=== PATIENT | female | born 1950 | race Caucasian/White ===

== ENCOUNTER 2019-01-09 10:30 | Emergency (ER) | payer MEDICARE ==
[~2019-01-09] VITALS: Ht 165.1 cm; Wt 77.3 kg
[2019-01-09 10:40] VITALS: BP 171/69; PULSE 59; RESP 20; Ht 165.1 cm; Wt 77.3 kg
[2019-01-09] MEDS ORDERED: KETOROLAC 15 MG INJ IV STA (10:45)
[2019-01-09] MEDS ORDERED: LACTATED RINGER'S 1,000 ML IV STA (10:45)
[2019-01-09] MEDS ORDERED: METO-319 ORAL (11:22)
[2019-01-09] MEDS ORDERED: LEVO100T8 ORAL (11:22)
[2019-01-09] MEDS ORDERED: OXYC-279 PO (11:36)
[2019-01-09] MEDS ORDERED: IBUP-1542 PO (11:36)
--- NOTE | 2019-01-09 11:52 | ERD ---
ER Documentation Chief Complaint Chief Complaint RIGHT SHOULDER PAIN & SWELLING S/P FALL ARM HIT PRINTER, GOOD PULSE HPI 68-year-old woman brought in by EMS for pain swelling deformity to the right upper arm after she bumped into a copier machine and then fell onto the arm. She denies wrist or elbow pain, no chest pain or shortness of breath. She denies head injury and denies headache or neck pain, no paresis or paresthesias, no abdominal pain or back pain. Patient was transported here by EMS without further complications ROS All systems reviewed and are negative except as per history of present illness. Medications Home Meds Active Scripts Oxycodone HCl/Acetaminophen (Percocet 5-325 mg Tablet) 1 Each Tablet, 1 EACH PO TID PRN for PAIN LEVEL 6-10, #12 TAB Prov:SALUD CONELY MD 01/09/19 Ibuprofen* (Motrin*) 600 Mg Tab, 600 MG PO Q8 PRN for PAIN AND/OR INFLAMMATION, #30 TAB Prov:SALUD CONLEY MD 01/09/19 Reported Medications Levothyroxine Sodium* (Levothyroxine Sodium*) 100 Mcg Tablet, 1 TAB ORAL DAILY 01/09/19 Metoprolol Succinate* (Toprol XL*) 50 Mg Tab.er.24h, 1 TAB ORAL DAILY 01/09/19 Allergies Allergies: Coded Allergies: No Known Allergy (Unverified , 01/09/19) PMhx/Soc None FmHx Family History: No diabetes Physical Exam Vitals Vital Signs Date Temp Pulse Resp B/P (MAP) Pulse Ox O2 O2 Flow FiO2 Time Delivery Rate 01/09/19 98.4 59 20 171/69 99 10:40 (103) Physical Exam GENERAL: Well-developed, well-nourished, well-hydrated, moderate discomfort, afebrile NEURO: Alert and oriented 3, cranial nerves II through XII intact bilaterally, pupils equal round reactive to light, no focal deficits or facial asymmetry CARDIAC: Regular rate and rhythm, no murmurs rubs or gallops LUNGS: Clear bilaterally no wheezing crackles or stridor ABDOMEN: Soft nontender, no guarding, no rigidity, no rebound, no psoas sign no obturator sign. Normoactive bowel sounds SKIN: Warm and dry to touch, no abrasions, contusions, or hematomas, no lacerations, no ecchymosis, no target lesions, and without ulcers EXTREMITIES: There is swelling deformity to the right mid humerus with tenderness to touch, distal pulses equal bilateral, sensation to the right axillary, median, ulnar, radial nerves intact and equal. Passive range of motion at the shoulder intact without difficulty although active range of motion limited due to pain, active range of motion at the right elbow and wrist is within normal limits. Result Diagram: 01/09/19 1112 Results 24 hrs Laboratory Tests Test 01/09/19 11:12 White Blood Count 10.4 10^3/ul Red Blood Count 4.64 10^6/ul Hemoglobin 13.8 g/dl Hematocrit 40.7 % Mean Corpuscular Volume 87.7 fl Mean Corpuscular Hemoglobin 29.7 pg Mean Corpuscular Hemoglobin Concent 33.9 g/dl Red Cell Distribution Width 13.3 % Platelet Count 290 10^3/UL Mean Platelet Volume 9.9 fl Immature Granulocytes % 0.400 % Neutrophils % 65.0 % Lymphocytes % 24.6 % Monocytes % 8.4 % Eosinophils % 1.2 % Basophils % 0.4 % Nucleated Red Blood Cells % 0.0 /100WBC Immature Granulocytes # 0.040 10^3/ul Neutrophils # 6.8 10^3/ul Lymphocytes # 2.6 10^3/ul Monocytes # 0.9 10^3/ul Eosinophils # 0.1 10^3/ul Basophils # 0.0 10^3/ul Nucleated Red Blood Cells # 0.0 10^3/ul Prothrombin Time 12.6 Sec Prothrombin Time Ratio 1.0 INR International Normalized Ratio 0.93 Activated Partial Thromboplast Time 31.3 Sec Current Medications Medications Dose Sig/Claude Start Time Status Last (Trade) Ordered Route PRN Stop Time Admin Dose Reason Admin Lactated 1,000 ml @ Q1H STAT 01/09/19 01/09/19 Ringer's 1,000 mls/hr IV 10:45 10:59 01/09/19 11:44 Ketorolac 15 mg ONCE STAT 01/09/19 DC 01/09/19 Tromethamine IV 10:45 10:59 (Toradol) 01/09/19 10:46 Procedures/MDM IV line was established patient was placed on radiation monitor rhythm strip revealed a sinus rhythm at about 80 bpm with upright P and T waves. Patient was afebrile I administered 1 L LR IV, Toradol 15 mg IV x1 Chest X-ray 1V Interpreted by me: Soft Tissue: No acute abnormalities Bones: No acute abnormalities Mediastinum/Cardiac Silhouette/Lungs: No acute abnormalities X-ray right shoulder 3V Interpreted by me: Bones: Displaced spiral fracture of the right mid humerus Joints: No dislocation Foreign body: None I spoke to the orthopedic surgeon Dr. Harrison regarding the patient's presentation, symptomatology, and ED work-up. He agreed with the management here in the ED and also reviewed x-rays and recommended discharge and outpatient management, he kindly agreed to see the patient tomorrow morning in his office at 11 AM. Instructions were provided to the patient and family and they agreed to this plan. Right upper extremity was placed in a shoulder immobilizer for comfort and supportive measures. Splint Assessment: Neurovascularly intact post splint placement with good fit. Patient feels much better at this time, and vital signs are normal, symptoms have improved. I did give strict instructions to return to the ED if symptoms continue or worsen, patient will otherwise follow-up with primary care physic darnell. Patient understood instructions and agreed to plan. Disclaimer: Inadvertent spelling and grammatical errors are likely due to EHR/dictation software use and do not reflect on the overall quality of patient care. Also, please note that the electronic time recorded on this note does not necessarily reflect the actual time of the patient encounter. Departure Diagnosis: Primary Impression: Spiral fracture of shaft of humerus Encounter type: initial encounter Fracture type: closed Fracture alignment: displaced Laterality: right Qualified Codes: S42.341A - Displaced spiral fracture of shaft of humerus, right arm, initial encounter for closed fracture Condition: Good Patient Instructions: Fracture, Upper Extremity Referrals: LUCERO HARRISON MD, DAVID MD January 09, 2019 11:52
== END 2019-01-09 14:07 | disposition home or self-care (01) ==
LOC: E/R 10:30
DX: S42.341A Displaced spiral fracture of shaft of humerus, right arm, initial encounter for closed fracture (principal); R07.9 Chest pain, unspecified; W20.8XXA Other cause of strike by thrown, projected or falling object, initial encounter; Y92.9 Unspecified place or not applicable
CPT/HCPCS: 29105; 36415; 71045; 73030; 80048; 85025; 85610; 85730; 96374; 99284; J1885; J7120